=== PATIENT | female | born 1975 | race Caucasian/White ===

== ENCOUNTER 2021-08-30 13:04 | Outpatient (RCR) | payer BC | END 2021-10-05 17:00 | disposition home or self-care (01) | LOC: OT 13:04 | DX: S52.92XA Unspecified fracture of left forearm, initial encounter for closed fracture (principal) ==

== ENCOUNTER → 2022-10-02 | Outpatient (CLI) | payer BC | LOC: MAMMO 11:00 | DX: Z12.31 Encounter for screening mammogram for malignant neoplasm of breast (principal) ==